=== PATIENT | female | born 1950 | race Caucasian/White ===

== ENCOUNTER → 2016-09-21 | Outpatient (CLI) | payer OTHER | LOC: HEART 5 09:12 | DX: R94.31 Abnormal electrocardiogram [ECG] [EKG] (principal) | CPT/HCPCS: 78452; 93306; A9502; J2785 ==

== ENCOUNTER → 2016-11-26 | Outpatient (CLI) | payer OTHER | LOC: MAMO 12:30 | DX: Z12.31 Encounter for screening mammogram for malignant neoplasm of breast (principal); Z80.3 Family history of malignant neoplasm of breast | CPT/HCPCS: G0202 ==

== ENCOUNTER 2020-06-22 11:56 | Emergency (ER) | payer MEDICARE, OTHER ==
[~2020-06-22 11:56] MED LIST: ALDACTONE50 MG PO; AZELASTINE137 MCG/0.; CALCIUM 600 +1 EAC3 PO; CALCIUM 600 +1 EAC7 PO; CITRATE OF MAG296 ML PO; CLARITIN10 MG PO; CLEOCIN 150MG150 MG PO; COLCRYS0.6 MG PO; COZAAR50 MG PO; DOCOLACE PO; ERYTHROMYCIN O3.5 GM OD; GLUCOTROL5 MG PO; HUMALOG KWIK PEN SQ; HYGROTON TAB 2525 MG PO; KEFLEX CAP 500500 MG PO; LACTULOSE20 GM/30 M PO; LANTUS100 UNIT/1 SQ; LASIX20 MG PO; LIPITOR TAB 1010 MG PO; MAGNESIUM CITR296 ML PO; OMNICEF 300 MG300 MG PO; PLAQUENIL 200200 MG PO; PROTONIX40 MG PO; SYMLINPEN2700 MCG/2 SQ; SYNTHROID100 MCG PO; TENORMIN 25 MG25 MG PO; TRIPLE ANTIBIO1 EACH TP; ULTRAM50 MG PO; VITAMIN D32000 UNI1 PO; ZITHROMAX500 MG PO; ZYLOPRIM 100 M100 MG PO; ZYLOPRIM100 MG PO
[2020-06-22 12:51] LABS: HEMOGLOBIN 12.1 gm/dl (12.3-15.3); RED BLOOD COUNT 3.55 M/UL (4.00-5.10); WHITE BLOOD COUNT 3.3 K/UL (4.5-11.0)
[2020-06-22 13:15] LABS: BUN/CREATININE RATIO 24 (0-10)
[2020-06-22] MEDS ORDERED: CITRATE OF MAG296 ML PO (13:42)
[2020-06-22] MEDS ORDERED: FLEET ENEMA EX230 ML PR (13:42)
== END 2020-06-22 15:00 | disposition home or self-care (01) ==
LOC: ER1 11:56
PROVIDERS: Physician Assistant
DX: K59.00 Constipation, unspecified (principal); E11.9 Type 2 diabetes mellitus without complications; I10 Essential (primary) hypertension
CPT/HCPCS: 74018; 80053; 85025; 99283

== ENCOUNTER 2020-09-16 18:46 | Emergency (ER) | payer MEDICARE, OTHER ==
[~2020-09-16] VITALS: Ht 165.1 cm; Wt 99.8 kg
[~2020-09-16 18:46] MED LIST changes: +FLEET ENEMA EX230 ML PR
[2020-09-16 19:43] LABS: HEMOGLOBIN 13.5 gm/dl (12.3-15.3); RED BLOOD COUNT 3.84 M/UL (4.00-5.10)
[2020-09-16 20:00] LABS: BUN/CREATININE RATIO 27 (0-10)
[2020-09-17] MEDS ORDERED: PLAQUENIL 200200 MG PO (08:49)
[2020-09-17] MEDS ORDERED: GLUCOTROL5 MG PO ×2 (08:49→16:46)
[2020-09-17] MEDS ORDERED: LASIX20 MG PO (08:50)
[2020-09-17] MEDS ORDERED: TENORMIN 25 MG25 MG PO (08:56)
[2020-09-17] MEDS ORDERED: SYNTHROID137 MCG PO (08:57)
[2020-09-17] MEDS ORDERED: ALDACTONE50 MG PO (08:57)
[2020-09-17] MEDS ORDERED: K-DUR TAB 10 M10 MEQ PO (08:57)
[2020-09-17] MEDS ORDERED: VITAMIN D21250 MCG PO (16:41)
[2020-09-17] MEDS ORDERED: IRON 100 PLUS1 EACH PO (16:44)
[2020-09-17] MEDS ORDERED: TRAMADOL HCL50 MG PO (16:45)
== END 2020-09-18 21:25 ==
LOC: ER1 18:46
PROVIDERS: Emergency Medicine
DX: T76.11XA Adult physical abuse, suspected, initial encounter (principal); E03.9 Hypothyroidism, unspecified; I10 Essential (primary) hypertension; E11.9 Type 2 diabetes mellitus without complications; Z20.822 Contact with and (suspected) exposure to COVID-19; Z90.49 Acquired absence of other specified parts of digestive tract
CPT/HCPCS: 0240U; 71045; 80053; 81001; 82962; 85025; 85610; 93005; 97161; 97166; 97530; 99285

== ENCOUNTER 2020-11-14 02:39 | Emergency (ER) | payer MEDICARE, OTHER ==
[~2020-11-14 02:39] MED LIST changes: +IRON 100 PLUS1 EACH PO; +K-DUR TAB 10 M10 MEQ PO; +SYNTHROID137 MCG PO; +TRAMADOL HCL50 MG PO; +VITAMIN D21250 MCG PO
[2020-11-14] MEDS ORDERED: ACETAMINOPHEN500 M1 PO (04:25)
== END 2020-11-14 04:37 | disposition home or self-care (01) ==
LOC: ER1 02:39
DX: S50.311A Abrasion of right elbow, initial encounter (principal); M25.511 Pain in right shoulder; I10 Essential (primary) hypertension; E11.9 Type 2 diabetes mellitus without complications; Z23 Encounter for immunization; W19.XXXA Unspecified fall, initial encounter
CPT/HCPCS: 73030; 73080; 90471; 90715; 99283

== ENCOUNTER 2020-12-02 20:45 | Emergency (ER) | payer MEDICARE, OTHER ==
[~2020-12-02 20:45] MED LIST changes: +ACETAMINOPHEN500 M1 PO
[2020-12-02 21:28] LABS: HEMOGLOBIN 11.7 gm/dl (12.3-15.3); RED BLOOD COUNT 3.32 M/UL (4.00-5.10); WHITE BLOOD COUNT 3.2 K/UL (4.5-11.0)
[2020-12-02 22:08] LABS: BUN/CREATININE RATIO 19 (0-10)
[2020-12-03] MEDS ORDERED: LASIX 40 MG TAB40 MG PO (07:03)
== END 2020-12-03 07:35 | disposition home or self-care (01) ==
LOC: ER1 20:45
PROVIDERS: Family Medicine
DX: R60.0 Localized edema (principal); I10 Essential (primary) hypertension
CPT/HCPCS: 71045; 80053; 81001; 82550; 82553; 83874; 83880; 84484; 85025; 85610; 93005; 96374; 99284; J1940

== ENCOUNTER → 2020-12-11 | Outpatient (CLI) | payer MEDICARE, OTHER ==
[~2020-12-11] MED LIST changes: +CHRONULAC20 GM/30 M PO; +FUROSEMIDE20 MG PO; +LANTUS INS100 UTS/M1 SQ; +LASIX 40 MG TAB40 MG PO; +SPIRONOLACTONE50 MG PO
== END ==
LOC: WCC 10:08
PROC: 2W1LX6Z Compression of Right Lower Extremity using Pressure Dressing (ICD-10-PCS; principal; 2020-12-11)
PROC: 0JBN0ZZ Excision of Right Lower Leg Subcutaneous Tissue and Fascia, Open Approach (ICD-10-PCS; principal; 2020-12-11)
DX: I87.311 Chronic venous hypertension (idiopathic) with ulcer of right lower extremity (principal); L97.812 Non-pressure chronic ulcer of other part of right lower leg with fat layer exposed; E11.622 Type 2 diabetes mellitus with other skin ulcer; E11.52 Type 2 diabetes mellitus with diabetic peripheral angiopathy with gangrene; I96 Gangrene, not elsewhere classified; I25.10 Atherosclerotic heart disease of native coronary artery without angina pectoris; I10 Essential (primary) hypertension; E11.36 Type 2 diabetes mellitus with diabetic cataract; H26.9 Unspecified cataract; G47.30 Sleep apnea, unspecified; M32.9 Systemic lupus erythematosus, unspecified; M10.9 Gout, unspecified; K74.60 Unspecified cirrhosis of liver; M19.90 Unspecified osteoarthritis, unspecified site; E66.01 Morbid (severe) obesity due to excess calories; Z79.4 Long term (current) use of insulin; Z79.891 Long term (current) use of opiate analgesic; Z79.899 Other long term (current) drug therapy
CPT/HCPCS: G0463

== ENCOUNTER → 2021-01-05 | Outpatient (CLI) | payer MEDICARE, OTHER | LOC: WCC 14:29 | DX: I87.311 Chronic venous hypertension (idiopathic) with ulcer of right lower extremity (principal); I10 Essential (primary) hypertension; I25.10 Atherosclerotic heart disease of native coronary artery without angina pectoris; E11.628 Type 2 diabetes mellitus with other skin complications; M32.9 Systemic lupus erythematosus, unspecified; M10.9 Gout, unspecified; G47.30 Sleep apnea, unspecified; R60.0 Localized edema; K74.60 Unspecified cirrhosis of liver; E66.01 Morbid (severe) obesity due to excess calories | CPT/HCPCS: 97597 ==

== ENCOUNTER → 2021-01-12 | Outpatient (CLI) | payer MEDICARE, OTHER | LOC: WCC 11:00 | PROC: 0JBN0ZZ Excision of Right Lower Leg Subcutaneous Tissue and Fascia, Open Approach (ICD-10-PCS; principal; 2021-01-12) | PROC: 2W1QX6Z Compression of Right Lower Leg using Pressure Dressing (ICD-10-PCS; 2021-01-12) | DX: I87.311 Chronic venous hypertension (idiopathic) with ulcer of right lower extremity (principal); L97.812 Non-pressure chronic ulcer of other part of right lower leg with fat layer exposed; I10 Essential (primary) hypertension; I25.10 Atherosclerotic heart disease of native coronary artery without angina pectoris; E11.622 Type 2 diabetes mellitus with other skin ulcer; M32.9 Systemic lupus erythematosus, unspecified; M10.9 Gout, unspecified; G47.30 Sleep apnea, unspecified; K74.60 Unspecified cirrhosis of liver; E11.36 Type 2 diabetes mellitus with diabetic cataract; H26.9 Unspecified cataract; D64.9 Anemia, unspecified; M19.90 Unspecified osteoarthritis, unspecified site; E66.01 Morbid (severe) obesity due to excess calories; Z79.891 Long term (current) use of opiate analgesic; Z79.899 Other long term (current) drug therapy ==

== ENCOUNTER → 2021-01-26 | Outpatient (CLI) | payer MEDICARE, OTHER ==
[~2021-01-26] MED LIST changes: -CHRONULAC20 GM/30 M PO; -FUROSEMIDE20 MG PO; -LANTUS INS100 UTS/M1 SQ; -SPIRONOLACTONE50 MG PO
== END ==
LOC: WCC 11:02
DX: I87.311 Chronic venous hypertension (idiopathic) with ulcer of right lower extremity (principal); L97.819 Non-pressure chronic ulcer of other part of right lower leg with unspecified severity; I10 Essential (primary) hypertension; I25.10 Atherosclerotic heart disease of native coronary artery without angina pectoris; E11.628 Type 2 diabetes mellitus with other skin complications; M32.9 Systemic lupus erythematosus, unspecified; M10.9 Gout, unspecified; G47.30 Sleep apnea, unspecified; G60.0 Hereditary motor and sensory neuropathy; K74.60 Unspecified cirrhosis of liver; E66.01 Morbid (severe) obesity due to excess calories
CPT/HCPCS: 97597

== ENCOUNTER → 2021-02-03 | Outpatient (CLI) | payer MEDICARE, OTHER ==
[~2021-02-03] MED LIST changes: +CHRONULAC20 GM/30 M PO; +FUROSEMIDE20 MG PO; +LANTUS INS100 UTS/M1 SQ; +SPIRONOLACTONE50 MG PO
== END | disposition home or self-care (01) ==
LOC: WCC 11:01
PROC: 2W1QX6Z Compression of Right Lower Leg using Pressure Dressing (ICD-10-PCS; principal; 2021-02-03)
DX: I87.311 Chronic venous hypertension (idiopathic) with ulcer of right lower extremity (principal); L97.812 Non-pressure chronic ulcer of other part of right lower leg with fat layer exposed; E11.622 Type 2 diabetes mellitus with other skin ulcer; E11.628 Type 2 diabetes mellitus with other skin complications; M32.9 Systemic lupus erythematosus, unspecified; M10.9 Gout, unspecified; I87.2 Venous insufficiency (chronic) (peripheral); I25.10 Atherosclerotic heart disease of native coronary artery without angina pectoris; I10 Essential (primary) hypertension; K74.60 Unspecified cirrhosis of liver; G47.30 Sleep apnea, unspecified; M19.90 Unspecified osteoarthritis, unspecified site; E66.01 Morbid (severe) obesity due to excess calories; Z79.891 Long term (current) use of opiate analgesic; Z79.899 Other long term (current) drug therapy

== ENCOUNTER 2021-02-07 15:05 | Inpatient (IN) | payer MEDICARE, OTHER ==
[~2021-02-07] VITALS: Ht 172.7 cm; Wt 102.3 kg
[~2021-02-07 15:05] MED LIST changes: -CHRONULAC20 GM/30 M PO; -FUROSEMIDE20 MG PO; -LANTUS INS100 UTS/M1 SQ; -SPIRONOLACTONE50 MG PO
[2021-02-07 15:51] LABS: HEMOGLOBIN 13.2 gm/dl (12.3-15.3); RED BLOOD COUNT 3.85 M/UL (4.00-5.10); WHITE BLOOD COUNT 3.9 K/UL (4.5-11.0)
[2021-02-07 16:18] LABS: BUN/CREATININE RATIO 23 (0-10)
[2021-02-08 03:15] LABS: HEMOGLOBIN 11.6 gm/dl (12.3-15.3); WHITE BLOOD COUNT 3.2 K/UL (4.5-11.0)
[2021-02-08 03:18] LABS: RED BLOOD COUNT 3.43 M/UL (4.00-5.10)
[2021-02-08 04:14] LABS: BUN/CREATININE RATIO 24 (0-10)
[2021-02-08] MEDS ORDERED: SPIRONOLACTONE50 MG PO (11:59)
[2021-02-08] MEDS ORDERED: FUROSEMIDE20 MG PO (11:59)
[2021-02-09 03:31] LABS: HEMOGLOBIN 11.6 gm/dl (12.3-15.3); RED BLOOD COUNT 3.44 M/UL (4.00-5.10)
[2021-02-09 03:37] LABS: WHITE BLOOD COUNT 4.7 K/UL (4.5-11.0)
[2021-02-09 03:42] LABS: BUN/CREATININE RATIO 21 (0-10)
[2021-02-10 03:44] LABS: RED BLOOD COUNT 3.25 M/UL (4.00-5.10); WHITE BLOOD COUNT 5.3 K/UL (4.5-11.0)
[2021-02-10 04:19] LABS: BUN/CREATININE RATIO 23 (0-10)
[2021-02-11 06:32] LABS: HEMOGLOBIN 10.4 gm/dl (12.3-15.3); RED BLOOD COUNT 3.09 M/UL (4.00-5.10)
[2021-02-11 06:40] LABS: WHITE BLOOD COUNT 3.5 K/UL (4.5-11.0)
[2021-02-12 13:55] LABS: HEMOGLOBIN 12.8 gm/dl (12.3-15.3); RED BLOOD COUNT 3.7 M/UL (4.00-5.10); WHITE BLOOD COUNT 6.3 K/UL (4.5-11.0)
[2021-02-13 06:07] LABS: HEMOGLOBIN 11.2 gm/dl (12.3-15.3)
[2021-02-13 06:21] LABS: RED BLOOD COUNT 3.23 M/UL (4.00-5.10); WHITE BLOOD COUNT 4.4 K/UL (4.5-11.0)
[2021-02-14 08:27] LABS: HEMOGLOBIN 11.4 gm/dl (12.3-15.3); RED BLOOD COUNT 3.34 M/UL (4.00-5.10); WHITE BLOOD COUNT 5.9 K/UL (4.5-11.0)
[2021-02-15 07:50] LABS: RED BLOOD COUNT 3.24 M/UL (4.00-5.10)
[2021-02-16 07:17] LABS: HEMOGLOBIN 10.2 gm/dl (12.3-15.3); RED BLOOD COUNT 2.94 M/UL (4.00-5.10); WHITE BLOOD COUNT 4.1 K/UL (4.5-11.0)
[2021-02-16 07:53] LABS: BUN/CREATININE RATIO 35 (0-10)
[2021-02-17 03:35] LABS: HEMOGLOBIN 10.2 gm/dl (12.3-15.3); RED BLOOD COUNT 2.93 M/UL (4.00-5.10); WHITE BLOOD COUNT 4.5 K/UL (4.5-11.0)
[2021-02-17 03:46] LABS: BUN/CREATININE RATIO 36 (0-10)
[2021-02-17 08:28] LABS: WHITE BLOOD COUNT 5.6 K/UL (4.5-11.0)
[2021-02-17 08:35] LABS: RED BLOOD COUNT 3.24 M/UL (4.00-5.10)
[2021-02-17 09:00] LABS: BUN/CREATININE RATIO 35 (0-10)
[2021-02-17] MEDS ORDERED: CHRONULAC20 GM/30 M PO (11:13)
[2021-02-17] MEDS ORDERED: LANTUS INS100 UTS/M1 SQ (11:13)
== END 2021-02-17 16:02 | disposition home health service (06) | DRG 442 ==
LOC: ER1 15:05 → CDU 21:23 → M/S 21:23 → PROG CARE 02-08 15:39 → M/S 02-10 03:46
PROVIDERS: Family Medicine; Internal Medicine; Physician Assistant; ADMIT Internal Medicine
DX: K72.00 Acute and subacute hepatic failure without coma (principal); D61.818 Other pancytopenia; K76.6 Portal hypertension; E72.20 Disorder of urea cycle metabolism, unspecified; Z20.822 Contact with and (suspected) exposure to COVID-19; K74.60 Unspecified cirrhosis of liver; E11.9 Type 2 diabetes mellitus without complications; E03.9 Hypothyroidism, unspecified; I10 Essential (primary) hypertension; M10.9 Gout, unspecified; E11.65 Type 2 diabetes mellitus with hyperglycemia; E66.01 Morbid (severe) obesity due to excess calories; K59.00 Constipation, unspecified; D69.6 Thrombocytopenia, unspecified; K21.9 Gastro-esophageal reflux disease without esophagitis; F03.90 Unspecified dementia, unspecified severity, without behavioral disturbance, psychotic disturbance, mood disturbance, and anxiety; Z90.49 Acquired absence of other specified parts of digestive tract; Z79.4 Long term (current) use of insulin; Z91.14 Patient's other noncompliance with medication regimen; Z68.34 Body mass index [BMI] 34.0-34.9, adult
CPT/HCPCS: 36415; 51701; 70450; 71045; 80048; 80053; 80307; 81001; 82140; 82550; 82553; 82962; 83605; 83690; 83735; 84484; 85025; 85027; 87040; 87086; 93005; 97110; 97110-GP-CQ; 97116; 97116-GP-CQ; 97161; 97166; 97535; 99285; G0378; J0696; J1200; J1630; J1650; J3486; Q9967; U0002

== ENCOUNTER 2021-03-02 04:40 | Emergency (ER) | payer MEDICARE, OTHER ==
[~2021-03-02 04:40] MED LIST changes: +CHRONULAC20 GM/30 M PO; +FUROSEMIDE20 MG PO; +LANTUS INS100 UTS/M1 SQ; +SPIRONOLACTONE50 MG PO
[2021-03-02] MEDS ORDERED: CITRATE OF MAG296 ML PO (05:42)
== END 2021-03-02 09:11 | disposition home or self-care (01) ==
LOC: ER1 04:40
DX: R10.84 Generalized abdominal pain (principal); E11.9 Type 2 diabetes mellitus without complications; I10 Essential (primary) hypertension; M10.9 Gout, unspecified
CPT/HCPCS: 99283

== ENCOUNTER 2021-04-14 04:36 | Observation (INO) | payer MEDICARE, OTHER ==
[~2021-04-14] VITALS: Ht 165.1 cm; Wt 99.8 kg
[~2021-04-14 04:36] MED LIST changes: +ALDACTONE100 MG PO
[2021-04-14 05:54] LABS: HEMOGLOBIN 11.7 gm/dl (12.3-15.3); RED BLOOD COUNT 3.32 M/UL (4.00-5.10); WHITE BLOOD COUNT 4.5 K/UL (4.5-11.0)
[2021-04-14 07:26] LABS: BUN/CREATININE RATIO 26 (0-10)
[2021-04-14] MEDS ORDERED: GLIPIZIDE5 MG PO (09:37)
[2021-04-14] MEDS ORDERED: CONSTULOSE10 GM/15 M PO (09:38)
[2021-04-14] MEDS ORDERED: FERROUS SULFAT325 MG PO (09:40)
[2021-04-14] MEDS ORDERED: CALCIUM CARBON600 M1 PO (09:41)
[2021-04-14 15:55] LABS: BORDETELLA PARAPERTUSSIS Not Detected (Not Detectd); BORDETELLA PERTUSSIS Not Detected (Not Detectd); CHLAMYDIA PNEUMONIAE Not Detected (Not Detectd); CORONAVIRUS HKU1 Not Detected (Not Detectd); CORONAVIRUS NL63 Not Detected (Not Detectd); CORONAVIRUS OC43 Not Detected (Not Detectd); CORONOAVIRUS 229E Not Detected (Not Detectd); HUMAN METAPNEUMOVIRUS Not Detected (Not Detectd); HUMAN RHINOVIRUS/ENTEROVIRUS Not Detected (Not Detectd); INFLUENZA A Not Detected (Not Detectd); INFLUENZA B Not Detected (Not Detectd); MYCOPLASMA PNEUMONIAE Not Detected (Not Detectd); PARAINFLUENZA VIRUS 1 Not Detected (Not Detectd); PARAINFLUENZA VIRUS 2 Not Detected (Not Detectd); PARAINFLUENZA VIRUS 3 Not Detected (Not Detectd); PARAINFLUENZA VIRUS 4 Not Detected (Not Detectd)
[2021-04-14 18:12] LABS: RESPIRATORY SYNCYTIAL VIRUS DETECTED (Not Detectd); SARS-CoV-2 NOT DETECTED (Not Detectd)
[2021-04-15 07:01] LABS: RED BLOOD COUNT 3.11 M/UL (4.00-5.10); WHITE BLOOD COUNT 3.8 K/UL (4.5-11.0)
[2021-04-15 07:21] LABS: BUN/CREATININE RATIO 22 (0-10)
[2021-04-16 07:24] LABS: HEMOGLOBIN 11.4 gm/dl (12.3-15.3); RED BLOOD COUNT 3.24 M/UL (4.00-5.10); WHITE BLOOD COUNT 4.3 K/UL (4.5-11.0)
[2021-04-16 08:23] LABS: BUN/CREATININE RATIO 25 (0-10)
[2021-04-16] MEDS ORDERED: OMNICEF 300 MG300 MG PO (11:26)
[2021-04-16] MEDS ORDERED: LACTINEX TABLET1 EA PO (11:26)
[2021-04-16] MEDS ORDERED: MUCINEX100 MG PO (11:35)
[2021-04-16] MEDS ORDERED: MUCINEX600 MG PO (11:41)
== END 2021-04-16 16:33 | disposition home or self-care (01) ==
LOC: ER1 04:36 → CDU 08:50 → MED SURG 4 10:35
PROVIDERS: Family Medicine; Physician Assistant; ADMIT Internal Medicine
DX: J06.9 Acute upper respiratory infection, unspecified (principal); B97.4 Respiratory syncytial virus as the cause of diseases classified elsewhere; D61.818 Other pancytopenia; K74.60 Unspecified cirrhosis of liver; E89.0 Postprocedural hypothyroidism; I10 Essential (primary) hypertension; E11.9 Type 2 diabetes mellitus without complications; R01.1 Cardiac murmur, unspecified; Z20.822 Contact with and (suspected) exposure to COVID-19; Z91.14 Patient's other noncompliance with medication regimen; Z90.49 Acquired absence of other specified parts of digestive tract; Z79.84 Long term (current) use of oral hypoglycemic drugs; Z79.899 Other long term (current) drug therapy
CPT/HCPCS: 36415; 71045; 80053; 82140; 82550; 82553; 82962; 83605; 83874; 83880; 84484; 85025; 85027; 87633; 93005; 94640; 94664; 94760; 96372; 96374; 96376; 97161; 99284; G0378; J0696; J1650; J7040; U0002

== ENCOUNTER 2021-05-03 23:46 | Emergency (ER) | payer MEDICARE, OTHER ==
[~2021-05-03 23:46] MED LIST changes: +CALCIUM CARBON600 M1 PO; +CONSTULOSE10 GM/15 M PO; +FERROUS SULFAT325 MG PO; +GLIPIZIDE5 MG PO; +LACTINEX TABLET1 EA PO; +MUCINEX100 MG PO; +MUCINEX600 MG PO
[2021-05-04 00:58] LABS: HEMOGLOBIN 13.5 gm/dl (12.3-15.3); RED BLOOD COUNT 3.8 M/UL (4.00-5.10); WHITE BLOOD COUNT 4.4 K/UL (4.5-11.0)
[2021-05-04 02:19] LABS: BUN/CREATININE RATIO 19 (0-10)
[2021-05-04] MEDS ORDERED: HYDROCODON-ACE1 EAC4 PO (04:43)
[2021-05-04] MEDS ORDERED: LACTULOSE20 GM/30 M PO (04:48)
[2021-05-05] MEDS ORDERED: CIPRO500 MG PO (17:43)
[2021-05-05] MEDS ORDERED: METRONIDAZOLE500 MG PO (17:43)
== END 2021-05-04 05:08 | disposition home or self-care (01) ==
LOC: ER1 23:46
PROVIDERS: Family Medicine
DX: S22.31XA Fracture of one rib, right side, initial encounter for closed fracture (principal); E11.9 Type 2 diabetes mellitus without complications; Z90.49 Acquired absence of other specified parts of digestive tract; S50.811A Abrasion of right forearm, initial encounter; E11.65 Type 2 diabetes mellitus with hyperglycemia; D75.839 Thrombocytosis, unspecified; K74.60 Unspecified cirrhosis of liver; W01.0XXA Fall on same level from slipping, tripping and stumbling without subsequent striking against object, initial encounter
CPT/HCPCS: 71250; 80053; 81001; 82140; 82550; 82553; 83874; 84484; 85025; 93005; 99284

== ENCOUNTER 2021-05-05 13:50 | Emergency (ER) | payer MEDICARE, OTHER ==
[~2021-05-05 13:50] MED LIST changes: +HYDROCODON-ACE1 EAC4 PO
[2021-05-05 14:42] LABS: RED BLOOD COUNT 3.98 M/UL (4.00-5.10); WHITE BLOOD COUNT 8.5 K/UL (4.5-11.0)
[2021-05-05 15:45] LABS: BUN/CREATININE RATIO 25 (0-10)
[2021-05-05] MEDS ORDERED: CIPRO500 MG PO (17:43)
[2021-05-05] MEDS ORDERED: METRONIDAZOLE500 MG PO (17:43)
== END 2021-05-05 18:48 | disposition home or self-care (01) ==
LOC: ER1 13:50
PROVIDERS: Emergency Medicine
DX: K52.9 Noninfective gastroenteritis and colitis, unspecified (principal); E11.9 Type 2 diabetes mellitus without complications; I10 Essential (primary) hypertension; Z90.49 Acquired absence of other specified parts of digestive tract
CPT/HCPCS: 80053; 82272; 82962; 83605; 83735; 85025; 96374; 96375; 99284; J1956

== ENCOUNTER → 2021-06-30 | Outpatient (CLI) | payer MEDICARE, OTHER ==
[~2021-06-30] MED LIST changes: +CIPRO500 MG PO; +METRONIDAZOLE500 MG PO
== END | disposition home or self-care (01) ==
LOC: WCC 07:16
PROC: 0JBN0ZZ Excision of Right Lower Leg Subcutaneous Tissue and Fascia, Open Approach (ICD-10-PCS; principal; 2021-06-30)
DX: I87.311 Chronic venous hypertension (idiopathic) with ulcer of right lower extremity (principal); L97.811 Non-pressure chronic ulcer of other part of right lower leg limited to breakdown of skin; E11.622 Type 2 diabetes mellitus with other skin ulcer; I10 Essential (primary) hypertension; I25.10 Atherosclerotic heart disease of native coronary artery without angina pectoris; M10.9 Gout, unspecified; G47.30 Sleep apnea, unspecified; K74.60 Unspecified cirrhosis of liver; D64.9 Anemia, unspecified; L93.0 Discoid lupus erythematosus; H26.9 Unspecified cataract; R60.0 Localized edema; E66.01 Morbid (severe) obesity due to excess calories; Z68.38 Body mass index [BMI] 38.0-38.9, adult

== ENCOUNTER → 2021-07-07 | Outpatient (CLI) | payer MEDICARE, OTHER | END | disposition home or self-care (01) | LOC: WCC 07:48 | PROC: 0JBN0ZZ Excision of Right Lower Leg Subcutaneous Tissue and Fascia, Open Approach (ICD-10-PCS; principal; 2021-07-07) | DX: I87.311 Chronic venous hypertension (idiopathic) with ulcer of right lower extremity (principal); E11.622 Type 2 diabetes mellitus with other skin ulcer; L97.812 Non-pressure chronic ulcer of other part of right lower leg with fat layer exposed; I10 Essential (primary) hypertension; I25.10 Atherosclerotic heart disease of native coronary artery without angina pectoris; M10.9 Gout, unspecified; D64.9 Anemia, unspecified; E11.36 Type 2 diabetes mellitus with diabetic cataract; H26.9 Unspecified cataract; L93.0 Discoid lupus erythematosus; M19.90 Unspecified osteoarthritis, unspecified site; G47.30 Sleep apnea, unspecified; K74.60 Unspecified cirrhosis of liver; E66.01 Morbid (severe) obesity due to excess calories; Z68.39 Body mass index [BMI] 39.0-39.9, adult ==

== ENCOUNTER → 2021-07-14 | Outpatient (CLI) | payer MEDICARE, OTHER | END | disposition home or self-care (01) | LOC: WCC 08:14 | PROC: 0JBN0ZZ Excision of Right Lower Leg Subcutaneous Tissue and Fascia, Open Approach (ICD-10-PCS; principal; 2021-07-14) | PROC: 2W1QX6Z Compression of Right Lower Leg using Pressure Dressing (ICD-10-PCS; 2021-07-14) | DX: I87.311 Chronic venous hypertension (idiopathic) with ulcer of right lower extremity (principal); L97.812 Non-pressure chronic ulcer of other part of right lower leg with fat layer exposed; E11.622 Type 2 diabetes mellitus with other skin ulcer; I10 Essential (primary) hypertension; I25.10 Atherosclerotic heart disease of native coronary artery without angina pectoris; M10.9 Gout, unspecified; G47.30 Sleep apnea, unspecified; K74.60 Unspecified cirrhosis of liver; E11.36 Type 2 diabetes mellitus with diabetic cataract; H26.9 Unspecified cataract; M32.9 Systemic lupus erythematosus, unspecified; M19.90 Unspecified osteoarthritis, unspecified site; E66.01 Morbid (severe) obesity due to excess calories; Z68.38 Body mass index [BMI] 38.0-38.9, adult ==

== ENCOUNTER → 2021-07-21 | Outpatient (CLI) | payer MEDICARE, OTHER | END | disposition home or self-care (01) | LOC: WCC 09:02 | PROC: 0JBN0ZZ Excision of Right Lower Leg Subcutaneous Tissue and Fascia, Open Approach (ICD-10-PCS; principal; 2021-07-21) | PROC: 2W1QX6Z Compression of Right Lower Leg using Pressure Dressing (ICD-10-PCS; 2021-07-21) | DX: I87.311 Chronic venous hypertension (idiopathic) with ulcer of right lower extremity (principal); L97.811 Non-pressure chronic ulcer of other part of right lower leg limited to breakdown of skin; E11.622 Type 2 diabetes mellitus with other skin ulcer; E11.36 Type 2 diabetes mellitus with diabetic cataract; H26.9 Unspecified cataract; I25.10 Atherosclerotic heart disease of native coronary artery without angina pectoris; I10 Essential (primary) hypertension; M10.9 Gout, unspecified; G47.30 Sleep apnea, unspecified; K74.60 Unspecified cirrhosis of liver; M32.9 Systemic lupus erythematosus, unspecified; M19.90 Unspecified osteoarthritis, unspecified site; D64.9 Anemia, unspecified; E66.01 Morbid (severe) obesity due to excess calories; Z68.38 Body mass index [BMI] 38.0-38.9, adult ==

== ENCOUNTER 2021-07-27 15:59 | Emergency (ER) | payer MEDICARE, OTHER ==
[2021-07-27 17:37] LABS: HEMOGLOBIN 11.1 gm/dl (12.3-15.3); RED BLOOD COUNT 3.16 M/UL (4.00-5.10); WHITE BLOOD COUNT 3.1 K/UL (4.5-11.0)
[2021-07-27 17:49] LABS: BUN/CREATININE RATIO 26 (0-10)
[2021-07-27] MEDS ORDERED: ZOFRAN 4 MG TAB4 MG PO (20:49)
[2021-07-27] MEDS ORDERED: CHRONULAC20 GM/30 M PO (20:49)
== END 2021-07-27 20:05 | disposition home or self-care (01) ==
LOC: ER1 15:59
PROVIDERS: Physician Assistant
DX: K74.60 Unspecified cirrhosis of liver (principal); R19.7 Diarrhea, unspecified; I10 Essential (primary) hypertension; E11.9 Type 2 diabetes mellitus without complications; Z20.822 Contact with and (suspected) exposure to COVID-19
CPT/HCPCS: 80053; 82140; 82550; 82553; 83690; 83874; 84484; 85025; 96374; 99284; U0002

== ENCOUNTER → 2021-07-28 | Outpatient (CLI) | payer MEDICARE, OTHER ==
[~2021-07-28] MED LIST changes: +ZOFRAN 4 MG TAB4 MG PO
[2021-07-28 11:54] LABS: BUN/CREATININE RATIO 26 (0-10)
[2021-07-29 13:11] LABS: CREATININE, URINE 151.7 mg/dL (Not Estab.)
== END ==
LOC: LAB 10:43
PROVIDERS: Internal Medicine Nephrology
DX: N18.2 Chronic kidney disease, stage 2 (mild) (principal); E87.6 Hypokalemia
CPT/HCPCS: 36415; 80053; 82043; 82570; 83735

== ENCOUNTER → 2021-07-29 | Outpatient (CLI) | payer MEDICARE, OTHER | LOC: WCC 07:42 | DX: E11.628 Type 2 diabetes mellitus with other skin complications (principal); I87.311 Chronic venous hypertension (idiopathic) with ulcer of right lower extremity; I25.10 Atherosclerotic heart disease of native coronary artery without angina pectoris; M10.9 Gout, unspecified; G47.30 Sleep apnea, unspecified; R60.0 Localized edema; K74.60 Unspecified cirrhosis of liver; E66.01 Morbid (severe) obesity due to excess calories; I10 Essential (primary) hypertension | CPT/HCPCS: G0463 ==

== ENCOUNTER → 2021-08-07 | Outpatient (CLI) | payer MEDICARE, OTHER ==
[~2021-08-07] MED LIST changes: +DEMADEX 10 MG T10 MG PO; +DRISDOL1250 MCG PO; +TOPROL XL 100100 MG PO
== END | disposition home or self-care (01) ==
LOC: WCC 07:27
PROC: 0JBN0ZZ Excision of Right Lower Leg Subcutaneous Tissue and Fascia, Open Approach (ICD-10-PCS; principal; 2021-08-07)
PROC: 2W1QX6Z Compression of Right Lower Leg using Pressure Dressing (ICD-10-PCS; 2021-08-07)
DX: I87.311 Chronic venous hypertension (idiopathic) with ulcer of right lower extremity (principal); L97.812 Non-pressure chronic ulcer of other part of right lower leg with fat layer exposed; E11.622 Type 2 diabetes mellitus with other skin ulcer; I10 Essential (primary) hypertension; I25.10 Atherosclerotic heart disease of native coronary artery without angina pectoris; M10.9 Gout, unspecified; G47.30 Sleep apnea, unspecified; D64.9 Anemia, unspecified; M32.9 Systemic lupus erythematosus, unspecified; K74.60 Unspecified cirrhosis of liver; K72.90 Hepatic failure, unspecified without coma; E66.01 Morbid (severe) obesity due to excess calories; Z68.38 Body mass index [BMI] 38.0-38.9, adult

== ENCOUNTER 2021-08-08 05:52 | Observation (INO) | payer MEDICARE, OTHER ==
[~2021-08-08] VITALS: Ht 165.1 cm; Wt 99.8 kg
[~2021-08-08 05:52] MED LIST changes: -DEMADEX 10 MG T10 MG PO; -DRISDOL1250 MCG PO; -TOPROL XL 100100 MG PO
[2021-08-08 07:58] LABS: HEMOGLOBIN 11.8 gm/dl (12.3-15.3); RED BLOOD COUNT 3.39 M/UL (4.00-5.10); WHITE BLOOD COUNT 4.4 K/UL (4.5-11.0)
[2021-08-08] MEDS ORDERED: PROTONIX40 MG PO (08:47)
[2021-08-08] MEDS ORDERED: ZOFRAN 4 MG TAB4 MG PO (13:47)
[2021-08-08] MEDS ORDERED: TOPROL XL 100100 MG PO (13:47)
[2021-08-08] MEDS ORDERED: DEMADEX 10 MG T10 MG PO (13:47)
[2021-08-08] MEDS ORDERED: DRISDOL1250 MCG PO (13:48)
[2021-08-09 04:30] LABS: RED BLOOD COUNT 2.85 M/UL (4.00-5.10)
[2021-08-09 04:53] LABS: BUN/CREATININE RATIO 27 (0-10)
[2021-08-09] MEDS ORDERED: CONSTULOSE10 GM/15 M PO (09:35)
== END 2021-08-09 15:08 | disposition home or self-care (01) ==
LOC: ER1 05:52 → CDU 12:04 → M/S 12:40
PROVIDERS: Nurse Practitioner; Physician Assistant Medical; ADMIT Internal Medicine
DX: R11.2 Nausea with vomiting, unspecified (principal); Z20.822 Contact with and (suspected) exposure to COVID-19; K72.90 Hepatic failure, unspecified without coma; K74.60 Unspecified cirrhosis of liver; E03.9 Hypothyroidism, unspecified; I10 Essential (primary) hypertension; E72.20 Disorder of urea cycle metabolism, unspecified; D61.818 Other pancytopenia; E11.9 Type 2 diabetes mellitus without complications; Z79.84 Long term (current) use of oral hypoglycemic drugs; Z79.899 Other long term (current) drug therapy
CPT/HCPCS: 0240U; 36415; 36600; 71045; 80053; 81001; 82140; 82550; 82553; 82803; 82962; 83735; 84484; 85025; 85027; 93005; 99285; G0378

== ENCOUNTER → 2021-08-18 | Outpatient (CLI) | payer MEDICARE, OTHER ==
[~2021-08-18] MED LIST changes: +DEMADEX 10 MG T10 MG PO; +DRISDOL1250 MCG PO; +TOPROL XL 100100 MG PO
== END | disposition home or self-care (01) ==
LOC: WCC 07:58
PROC: 0JBN0ZZ Excision of Right Lower Leg Subcutaneous Tissue and Fascia, Open Approach (ICD-10-PCS; principal; 2021-08-18)
PROC: 2W1QX6Z Compression of Right Lower Leg using Pressure Dressing (ICD-10-PCS; 2021-08-18)
DX: I87.311 Chronic venous hypertension (idiopathic) with ulcer of right lower extremity (principal); L97.811 Non-pressure chronic ulcer of other part of right lower leg limited to breakdown of skin; E11.622 Type 2 diabetes mellitus with other skin ulcer; I10 Essential (primary) hypertension; I25.10 Atherosclerotic heart disease of native coronary artery without angina pectoris; M10.9 Gout, unspecified; G47.30 Sleep apnea, unspecified; M32.9 Systemic lupus erythematosus, unspecified; D64.9 Anemia, unspecified; M19.90 Unspecified osteoarthritis, unspecified site; K74.60 Unspecified cirrhosis of liver; E66.01 Morbid (severe) obesity due to excess calories; Z68.38 Body mass index [BMI] 38.0-38.9, adult
CPT/HCPCS: 87070; 87077; 87186; 87205

== ENCOUNTER → 2021-08-25 | Outpatient (CLI) | payer MEDICARE, OTHER | END | disposition home or self-care (01) | LOC: WCC 07:44 | PROC: 0JBN0ZZ Excision of Right Lower Leg Subcutaneous Tissue and Fascia, Open Approach (ICD-10-PCS; principal; 2021-08-25) | DX: I87.311 Chronic venous hypertension (idiopathic) with ulcer of right lower extremity (principal); E11.622 Type 2 diabetes mellitus with other skin ulcer; L97.812 Non-pressure chronic ulcer of other part of right lower leg with fat layer exposed; I25.10 Atherosclerotic heart disease of native coronary artery without angina pectoris; I10 Essential (primary) hypertension; M10.9 Gout, unspecified; K74.60 Unspecified cirrhosis of liver; E66.01 Morbid (severe) obesity due to excess calories; Z68.38 Body mass index [BMI] 38.0-38.9, adult ==

== ENCOUNTER → 2021-09-01 | Outpatient (CLI) | payer MEDICARE, OTHER | END | disposition home or self-care (01) | LOC: WCC 07:25 | PROC: 2W1QX6Z Compression of Right Lower Leg using Pressure Dressing (ICD-10-PCS; principal; 2021-09-01) | PROC: 0JBN0ZZ Excision of Right Lower Leg Subcutaneous Tissue and Fascia, Open Approach (ICD-10-PCS; principal; 2021-09-01) | DX: I87.311 Chronic venous hypertension (idiopathic) with ulcer of right lower extremity (principal); E11.622 Type 2 diabetes mellitus with other skin ulcer; L97.812 Non-pressure chronic ulcer of other part of right lower leg with fat layer exposed; I10 Essential (primary) hypertension; I25.10 Atherosclerotic heart disease of native coronary artery without angina pectoris; M10.9 Gout, unspecified; G47.30 Sleep apnea, unspecified; D64.9 Anemia, unspecified; M32.9 Systemic lupus erythematosus, unspecified; K74.60 Unspecified cirrhosis of liver; E66.01 Morbid (severe) obesity due to excess calories; Z68.38 Body mass index [BMI] 38.0-38.9, adult ==

== ENCOUNTER 2021-09-07 07:46 | Emergency (ER) | payer MEDICARE, OTHER ==
[2021-09-07 08:36] LABS: HEMOGLOBIN 11.7 gm/dl (12.3-15.3); RED BLOOD COUNT 3.3 M/UL (4.00-5.10)
[2021-09-07 09:06] LABS: BUN/CREATININE RATIO 23 (0-10)
[2021-09-07] MEDS ORDERED: ADULT GLYCERIN1 EACH PR (11:34)
[2021-09-07] MEDS ORDERED: CHRONULAC20 GM/30 M PO (11:34)
== END 2021-09-07 14:14 | disposition home or self-care (01) ==
LOC: ER1 07:46
PROVIDERS: Physician Assistant
DX: K59.00 Constipation, unspecified (principal); K74.60 Unspecified cirrhosis of liver; E11.9 Type 2 diabetes mellitus without complications
CPT/HCPCS: 71045; 80053; 81001; 82140; 82550; 82553; 83605; 83690; 84484; 85025; 87086; 99284; Q9967

== ENCOUNTER → 2021-09-09 | Outpatient (CLI) | payer MEDICARE, OTHER ==
[~2021-09-09] MED LIST changes: +ADULT GLYCERIN1 EACH PR
== END | disposition home or self-care (01) ==
LOC: WCC 07:40
PROC: 0JBN0ZZ Excision of Right Lower Leg Subcutaneous Tissue and Fascia, Open Approach (ICD-10-PCS; principal; 2021-09-09)
PROC: 2W1QX6Z Compression of Right Lower Leg using Pressure Dressing (ICD-10-PCS; 2021-09-09)
DX: I87.311 Chronic venous hypertension (idiopathic) with ulcer of right lower extremity (principal); E11.622 Type 2 diabetes mellitus with other skin ulcer; L97.812 Non-pressure chronic ulcer of other part of right lower leg with fat layer exposed; I10 Essential (primary) hypertension; I25.10 Atherosclerotic heart disease of native coronary artery without angina pectoris; M10.9 Gout, unspecified; K74.60 Unspecified cirrhosis of liver; G47.30 Sleep apnea, unspecified; D64.9 Anemia, unspecified; M19.90 Unspecified osteoarthritis, unspecified site; M32.9 Systemic lupus erythematosus, unspecified; E66.01 Morbid (severe) obesity due to excess calories; Z68.38 Body mass index [BMI] 38.0-38.9, adult

== ENCOUNTER → 2021-09-21 | Outpatient (CLI) | payer MEDICARE, OTHER | END | disposition home or self-care (01) | LOC: WCC 08:09 | PROC: 0JBP0ZZ Excision of Left Lower Leg Subcutaneous Tissue and Fascia, Open Approach (ICD-10-PCS; principal; 2021-09-21) | DX: I87.311 Chronic venous hypertension (idiopathic) with ulcer of right lower extremity (principal); L97.812 Non-pressure chronic ulcer of other part of right lower leg with fat layer exposed; E11.622 Type 2 diabetes mellitus with other skin ulcer; I10 Essential (primary) hypertension; I25.10 Atherosclerotic heart disease of native coronary artery without angina pectoris; G47.30 Sleep apnea, unspecified; K74.60 Unspecified cirrhosis of liver; E11.36 Type 2 diabetes mellitus with diabetic cataract; H26.9 Unspecified cataract; D64.9 Anemia, unspecified; M32.9 Systemic lupus erythematosus, unspecified; M19.90 Unspecified osteoarthritis, unspecified site; M10.9 Gout, unspecified; E66.01 Morbid (severe) obesity due to excess calories; Z68.38 Body mass index [BMI] 38.0-38.9, adult ==

== ENCOUNTER → 2021-09-30 | Outpatient (CLI) | payer MEDICARE, OTHER | END | disposition home or self-care (01) | LOC: WCC 08:16 | PROC: 0JBN0ZZ Excision of Right Lower Leg Subcutaneous Tissue and Fascia, Open Approach (ICD-10-PCS; principal; 2021-09-30) | DX: I87.311 Chronic venous hypertension (idiopathic) with ulcer of right lower extremity (principal); L97.811 Non-pressure chronic ulcer of other part of right lower leg limited to breakdown of skin; E11.622 Type 2 diabetes mellitus with other skin ulcer; E11.52 Type 2 diabetes mellitus with diabetic peripheral angiopathy with gangrene; I96 Gangrene, not elsewhere classified; I10 Essential (primary) hypertension; I25.10 Atherosclerotic heart disease of native coronary artery without angina pectoris; M10.9 Gout, unspecified; G47.30 Sleep apnea, unspecified; K74.60 Unspecified cirrhosis of liver; E11.36 Type 2 diabetes mellitus with diabetic cataract; H26.9 Unspecified cataract; M32.9 Systemic lupus erythematosus, unspecified; M19.90 Unspecified osteoarthritis, unspecified site; E66.01 Morbid (severe) obesity due to excess calories; Z68.38 Body mass index [BMI] 38.0-38.9, adult ==

== ENCOUNTER → 2021-10-01 | Outpatient (CLI) | payer MEDICARE, OTHER ==
[2021-10-01 10:02] LABS: RED BLOOD COUNT 3.35 M/UL (4.00-5.10); WHITE BLOOD COUNT 4.6 K/UL (4.5-11.0)
[2021-10-01 10:22] LABS: BUN/CREATININE RATIO 26 (0-10)
[2021-10-02 10:17] LABS: CREATININE, URINE 82.2 mg/dL (Not Estab.)
== END ==
LOC: LAB 09:16
PROVIDERS: Internal Medicine Nephrology
DX: K74.60 Unspecified cirrhosis of liver (principal)
CPT/HCPCS: 36415; 80053; 82043; 82140; 82570; 85027; 85610

== ENCOUNTER → 2021-10-07 | Outpatient (CLI) | payer MEDICARE, OTHER | END | disposition home or self-care (01) | LOC: WCC 07:34 | PROC: 0JBN0ZZ Excision of Right Lower Leg Subcutaneous Tissue and Fascia, Open Approach (ICD-10-PCS; principal; 2021-10-07) | PROC: 2W1QX6Z Compression of Right Lower Leg using Pressure Dressing (ICD-10-PCS; 2021-10-07) | DX: I87.311 Chronic venous hypertension (idiopathic) with ulcer of right lower extremity (principal); E11.622 Type 2 diabetes mellitus with other skin ulcer; L97.812 Non-pressure chronic ulcer of other part of right lower leg with fat layer exposed; I10 Essential (primary) hypertension; I25.10 Atherosclerotic heart disease of native coronary artery without angina pectoris; M10.9 Gout, unspecified; G47.30 Sleep apnea, unspecified; D64.9 Anemia, unspecified; L93.0 Discoid lupus erythematosus; M19.90 Unspecified osteoarthritis, unspecified site; K74.60 Unspecified cirrhosis of liver; E66.01 Morbid (severe) obesity due to excess calories; Z68.38 Body mass index [BMI] 38.0-38.9, adult ==

== ENCOUNTER → 2021-10-14 | Outpatient (CLI) | payer MEDICARE, OTHER | END | disposition home or self-care (01) | LOC: WCC 07:46 | PROC: 0JBN0ZZ Excision of Right Lower Leg Subcutaneous Tissue and Fascia, Open Approach (ICD-10-PCS; principal; 2021-10-14) | PROC: 2W1QX6Z Compression of Right Lower Leg using Pressure Dressing (ICD-10-PCS; 2021-10-14) | DX: I87.311 Chronic venous hypertension (idiopathic) with ulcer of right lower extremity (principal); E11.622 Type 2 diabetes mellitus with other skin ulcer; L97.812 Non-pressure chronic ulcer of other part of right lower leg with fat layer exposed; I25.10 Atherosclerotic heart disease of native coronary artery without angina pectoris; I10 Essential (primary) hypertension; G47.30 Sleep apnea, unspecified; M10.9 Gout, unspecified; D64.9 Anemia, unspecified; L93.0 Discoid lupus erythematosus; K74.60 Unspecified cirrhosis of liver; E66.01 Morbid (severe) obesity due to excess calories; Z68.38 Body mass index [BMI] 38.0-38.9, adult ==

== ENCOUNTER 2021-10-20 08:32 | Emergency (ER) | payer MEDICARE, OTHER ==
[2021-10-20 12:12] LABS: HEMOGLOBIN 12.9 gm/dl (12.3-15.3); RED BLOOD COUNT 3.64 M/UL (4.00-5.10)
[2021-10-20 12:34] LABS: BUN/CREATININE RATIO 23 (0-10)
== END 2021-10-20 16:00 | disposition home or self-care (01) ==
LOC: ER1 08:32
DX: R10.9 Unspecified abdominal pain (principal); I10 Essential (primary) hypertension; E11.9 Type 2 diabetes mellitus without complications; Z87.19 Personal history of other diseases of the digestive system
CPT/HCPCS: 80053; 81001; 82550; 82553; 83690; 84484; 85025; 85610; 99284; J7030; Q9967

== ENCOUNTER → 2021-11-03 | Outpatient (CLI) | payer MEDICARE, OTHER | END | disposition home or self-care (01) | LOC: WCC 07:32 | PROC: 0JBN0ZZ Excision of Right Lower Leg Subcutaneous Tissue and Fascia, Open Approach (ICD-10-PCS; principal; 2021-11-03) | PROC: 2W1QX6Z Compression of Right Lower Leg using Pressure Dressing (ICD-10-PCS; 2021-11-03) | DX: I87.311 Chronic venous hypertension (idiopathic) with ulcer of right lower extremity (principal); E11.622 Type 2 diabetes mellitus with other skin ulcer; L97.812 Non-pressure chronic ulcer of other part of right lower leg with fat layer exposed; I10 Essential (primary) hypertension; I25.10 Atherosclerotic heart disease of native coronary artery without angina pectoris; M10.9 Gout, unspecified; G47.30 Sleep apnea, unspecified; K21.9 Gastro-esophageal reflux disease without esophagitis; D64.9 Anemia, unspecified; I87.8 Other specified disorders of veins; K74.60 Unspecified cirrhosis of liver; M19.90 Unspecified osteoarthritis, unspecified site; L93.0 Discoid lupus erythematosus; E66.01 Morbid (severe) obesity due to excess calories; Z68.38 Body mass index [BMI] 38.0-38.9, adult ==

== ENCOUNTER → 2021-11-23 | Outpatient (CLI) | payer MEDICARE, OTHER | END | disposition home or self-care (01) | LOC: WCC 08:27 | PROC: 0JBN0ZZ Excision of Right Lower Leg Subcutaneous Tissue and Fascia, Open Approach (ICD-10-PCS; principal; 2021-11-23) | DX: I87.311 Chronic venous hypertension (idiopathic) with ulcer of right lower extremity (principal); L97.811 Non-pressure chronic ulcer of other part of right lower leg limited to breakdown of skin ==

== ENCOUNTER 2021-12-02 14:27 | Emergency (ER) | payer MEDICARE, OTHER ==
[2021-12-02 17:01] LABS: HEMOGLOBIN 12.3 gm/dl (12.3-15.3); RED BLOOD COUNT 3.47 M/UL (4.00-5.10); WHITE BLOOD COUNT 3.4 K/UL (4.5-11.0)
[2021-12-02 17:27] LABS: BUN/CREATININE RATIO 23 (0-10)
== END 2021-12-02 19:06 | disposition home or self-care (01) ==
LOC: ER1 14:27
PROVIDERS: Student in an Organized Health Care Education/Training Program
DX: K74.60 Unspecified cirrhosis of liver (principal); K59.00 Constipation, unspecified; I11.9 Hypertensive heart disease without heart failure
CPT/HCPCS: 80053; 83690; 85025; 99284

== ENCOUNTER → 2021-12-09 | Outpatient (CLI) | payer MEDICARE, OTHER ==
[~2021-12-09] MED LIST changes: +CALCIUM +D & M1 EACH PO; +LASIX TAB 20 MG20 MG PO; +OZEMPIC0.25 MG/0. SQ; +VITAMIN D350 MC3 PO
== END | disposition home or self-care (01) ==
LOC: WCC 07:22
PROC: 0JBN0ZZ Excision of Right Lower Leg Subcutaneous Tissue and Fascia, Open Approach (ICD-10-PCS; principal; 2021-12-09)
PROC: 2W1QX6Z Compression of Right Lower Leg using Pressure Dressing (ICD-10-PCS; 2021-12-09)
DX: I87.311 Chronic venous hypertension (idiopathic) with ulcer of right lower extremity (principal); E11.622 Type 2 diabetes mellitus with other skin ulcer; L97.812 Non-pressure chronic ulcer of other part of right lower leg with fat layer exposed; I10 Essential (primary) hypertension; I25.10 Atherosclerotic heart disease of native coronary artery without angina pectoris; M10.9 Gout, unspecified; G47.30 Sleep apnea, unspecified; D64.9 Anemia, unspecified; L93.0 Discoid lupus erythematosus; M19.90 Unspecified osteoarthritis, unspecified site; K74.60 Unspecified cirrhosis of liver; E66.01 Morbid (severe) obesity due to excess calories; Z68.38 Body mass index [BMI] 38.0-38.9, adult; Z79.899 Other long term (current) drug therapy

== ENCOUNTER → 2021-12-10 | Day surgery (SDC) | payer MEDICARE, OTHER | END | disposition home or self-care (01) | LOC: OR 07:37 | DX: K76.0 Fatty (change of) liver, not elsewhere classified (principal); K74.60 Unspecified cirrhosis of liver; I10 Essential (primary) hypertension; K21.9 Gastro-esophageal reflux disease without esophagitis; M10.9 Gout, unspecified; M32.9 Systemic lupus erythematosus, unspecified; E78.5 Hyperlipidemia, unspecified; E11.9 Type 2 diabetes mellitus without complications; E03.9 Hypothyroidism, unspecified; Z53.8 Procedure and treatment not carried out for other reasons; K59.00 Constipation, unspecified; K76.6 Portal hypertension; K72.90 Hepatic failure, unspecified without coma; F03.90 Unspecified dementia, unspecified severity, without behavioral disturbance, psychotic disturbance, mood disturbance, and anxiety; E66.01 Morbid (severe) obesity due to excess calories; I25.2 Old myocardial infarction; Z68.35 Body mass index [BMI] 35.0-35.9, adult; Z79.84 Long term (current) use of oral hypoglycemic drugs; Z79.890 Hormone replacement therapy; Z79.899 Other long term (current) drug therapy | CPT/HCPCS: 82962; J7040 ==

== ENCOUNTER → 2021-12-18 | Outpatient (CLI) | payer MEDICARE, OTHER | LOC: WCC 06:53 | DX: E11.628 Type 2 diabetes mellitus with other skin complications (principal); I87.311 Chronic venous hypertension (idiopathic) with ulcer of right lower extremity; I10 Essential (primary) hypertension; I25.10 Atherosclerotic heart disease of native coronary artery without angina pectoris; M10.9 Gout, unspecified; G47.30 Sleep apnea, unspecified; R60.0 Localized edema; K74.60 Unspecified cirrhosis of liver; E66.01 Morbid (severe) obesity due to excess calories | CPT/HCPCS: 97597 ==

== ENCOUNTER → 2021-12-23 | Outpatient (CLI) | payer MEDICARE, OTHER ==
[~2021-12-23] MED LIST changes: +PLAQUENIL200 MG PO; +VITAMIN D31250 MCG PO; +XIFAXAN 550 MG550 MG PO
== END | disposition home or self-care (01) ==
LOC: WCC 07:41
PROC: 0JBN0ZZ Excision of Right Lower Leg Subcutaneous Tissue and Fascia, Open Approach (ICD-10-PCS; principal; 2021-12-23)
PROC: 2W1QX6Z Compression of Right Lower Leg using Pressure Dressing (ICD-10-PCS; 2021-12-23)
DX: I87.311 Chronic venous hypertension (idiopathic) with ulcer of right lower extremity (principal); L97.812 Non-pressure chronic ulcer of other part of right lower leg with fat layer exposed; E11.628 Type 2 diabetes mellitus with other skin complications; E11.52 Type 2 diabetes mellitus with diabetic peripheral angiopathy with gangrene; I96 Gangrene, not elsewhere classified; I10 Essential (primary) hypertension; I25.10 Atherosclerotic heart disease of native coronary artery without angina pectoris; M10.9 Gout, unspecified; G47.30 Sleep apnea, unspecified; K74.60 Unspecified cirrhosis of liver; E66.01 Morbid (severe) obesity due to excess calories; Z68.38 Body mass index [BMI] 38.0-38.9, adult; Z79.899 Other long term (current) drug therapy

== ENCOUNTER 2021-12-25 19:54 | Observation (INO) | payer MEDICARE, OTHER ==
[~2021-12-25] VITALS: Ht 165.1 cm; Wt 99.8 kg
[~2021-12-25 19:54] MED LIST changes: -VITAMIN D31250 MCG PO; -XIFAXAN 550 MG550 MG PO
[2021-12-25 21:09] LABS: BUN/CREATININE RATIO 23 (0-10)
[2021-12-25 21:54] LABS: HEMOGLOBIN 11.4 gm/dl (12.3-15.3); RED BLOOD COUNT 3.23 M/UL (4.00-5.10); WHITE BLOOD COUNT 2.9 K/UL (4.5-11.0)
[2021-12-26 00:56] LABS: HEMOGLOBIN 11.2 gm/dl (12.3-15.3); RED BLOOD COUNT 3.19 M/UL (4.00-5.10); WHITE BLOOD COUNT 3.5 K/UL (4.5-11.0)
[2021-12-26 01:08] LABS: BUN/CREATININE RATIO 22 (0-10)
[2021-12-26] MEDS ORDERED: GLIPIZIDE5 MG PO (09:35)
[2021-12-26] MEDS ORDERED: VITAMIN D31250 MCG PO (09:37)
[2021-12-27 03:54] LABS: HEMOGLOBIN 10.5 gm/dl (12.3-15.3); RED BLOOD COUNT 2.99 M/UL (4.00-5.10); WHITE BLOOD COUNT 3.7 K/UL (4.5-11.0)
[2021-12-27 04:32] LABS: BUN/CREATININE RATIO 19 (0-10)
[2021-12-28 05:37] LABS: HEMOGLOBIN 10.1 gm/dl (12.3-15.3); RED BLOOD COUNT 2.91 M/UL (4.00-5.10); WHITE BLOOD COUNT 3.5 K/UL (4.5-11.0)
[2021-12-28 05:41] LABS: BUN/CREATININE RATIO 22 (0-10)
[2021-12-29 06:54] LABS: HEMOGLOBIN 10.8 gm/dl (12.3-15.3); RED BLOOD COUNT 3.06 M/UL (4.00-5.10); WHITE BLOOD COUNT 3.5 K/UL (4.5-11.0)
[2021-12-29 07:20] LABS: BUN/CREATININE RATIO 26 (0-10)
[2021-12-29] MEDS ORDERED: CONSTULOSE10 GM/15 M PO (09:50)
[2021-12-29] MEDS ORDERED: XIFAXAN 550 MG550 MG PO (09:50)
--- NOTE | 2021-12-29 18:27 | NUR ---
NURSE CALLED [facility] TO GIVE REPORT AND THEY SAID THEY WOULD CALL THE NURSE BACK TO GET REPORT. NURSE CALLED [facility] AGAIN BEOFRE LEAVING [facility] SHIFT CHANGE AND THE [facility]ENC[facility] SAID THEY WOULD GIVE USE A CALL BACK IF ANY INFORMATION WAS NEEDED.
== END 2021-12-29 15:00 | disposition home health service (06) ==
LOC: ER1 19:54 → CDU 23:01 → MED SURG 4 23:01
PROVIDERS: Internal Medicine; Physician Assistant; ADMIT Internal Medicine
DX: K72.90 Hepatic failure, unspecified without coma (principal); K74.60 Unspecified cirrhosis of liver; E87.2 Acidosis; E11.628 Type 2 diabetes mellitus with other skin complications; L97.929 Non-pressure chronic ulcer of unspecified part of left lower leg with unspecified severity; L97.919 Non-pressure chronic ulcer of unspecified part of right lower leg with unspecified severity; E03.9 Hypothyroidism, unspecified; D61.818 Other pancytopenia; E11.65 Type 2 diabetes mellitus with hyperglycemia; I10 Essential (primary) hypertension; K59.00 Constipation, unspecified; G89.29 Other chronic pain; M25.552 Pain in left hip; M25.551 Pain in right hip; M10.9 Gout, unspecified; B88.8 Other specified infestations; E66.9 Obesity, unspecified; Z68.36 Body mass index [BMI] 36.0-36.9, adult; Z79.84 Long term (current) use of oral hypoglycemic drugs; Z79.890 Hormone replacement therapy; Z79.899 Other long term (current) drug therapy
CPT/HCPCS: 36415; 71045; 72170; 80053; 81001; 82140; 82550; 82553; 82607; 82962; 83605; 83690; 83735; 84439; 84443; 84484; 85025; 85027; 85610; 87040; 87086; 93005; 96360; 96372; 99285; G0378; J1650

== ENCOUNTER → 2022-01-18 | Outpatient (CLI) | payer MEDICARE, OTHER ==
[~2022-01-18] MED LIST changes: +VITAMIN D31250 MCG PO; +XIFAXAN 550 MG550 MG PO
== END | disposition home or self-care (01) ==
LOC: WCC 06:46
PROC: 0JBN0ZZ Excision of Right Lower Leg Subcutaneous Tissue and Fascia, Open Approach (ICD-10-PCS; principal; 2022-01-18)
DX: I87.311 Chronic venous hypertension (idiopathic) with ulcer of right lower extremity (principal); E11.622 Type 2 diabetes mellitus with other skin ulcer; L97.812 Non-pressure chronic ulcer of other part of right lower leg with fat layer exposed; I10 Essential (primary) hypertension; I25.10 Atherosclerotic heart disease of native coronary artery without angina pectoris; M10.9 Gout, unspecified; K74.60 Unspecified cirrhosis of liver; G47.30 Sleep apnea, unspecified; D64.9 Anemia, unspecified; L93.0 Discoid lupus erythematosus; M19.90 Unspecified osteoarthritis, unspecified site; E66.01 Morbid (severe) obesity due to excess calories; Z68.38 Body mass index [BMI] 38.0-38.9, adult; Z79.899 Other long term (current) drug therapy

== ENCOUNTER → 2022-01-19 | Outpatient (CLI) | payer MEDICARE, OTHER ==
[2022-01-19 12:44] LABS: HEMOGLOBIN 11.8 gm/dl (12.3-15.3); RED BLOOD COUNT 3.35 M/UL (4.00-5.10); WHITE BLOOD COUNT 3.7 K/UL (4.5-11.0)
[2022-01-19 13:27] LABS: BUN/CREATININE RATIO 24 (0-10)
[2022-01-20 10:14] LABS: CREATININE, URINE 120.4 mg/dL (Not Estab.)
== END ==
LOC: LAB 11:08
PROVIDERS: Internal Medicine Nephrology
DX: K74.60 Unspecified cirrhosis of liver (principal); E87.6 Hypokalemia
CPT/HCPCS: 36415; 80053; 82043; 82570; 85027

== ENCOUNTER 2022-01-24 12:05 | Emergency (ER) | payer MEDICARE, OTHER ==
[2022-01-24 12:47] LABS: HEMOGLOBIN 10.5 gm/dl (12.3-15.3); RED BLOOD COUNT 2.98 M/UL (4.00-5.10); WHITE BLOOD COUNT 2.5 K/UL (4.5-11.0)
[2022-01-24 13:08] LABS: BUN/CREATININE RATIO 22 (0-10)
== END 2022-01-24 22:01 | disposition home or self-care (01) ==
LOC: ER1 12:05
PROVIDERS: Physician Assistant Medical
DX: K74.60 Unspecified cirrhosis of liver (principal); R19.07 Generalized intra-abdominal and pelvic swelling, mass and lump; E11.9 Type 2 diabetes mellitus without complications; D61.818 Other pancytopenia; I10 Essential (primary) hypertension; Z20.822 Contact with and (suspected) exposure to COVID-19
CPT/HCPCS: 71045; 80053; 81001; 82550; 82553; 83690; 84484; 85025; 93005; 96374; 96375; 99285; C9113; J2354; J2405; Q9967; U0002